=== PATIENT | female | born 1970 | race Caucasian/White ===

== ENCOUNTER 2019-03-22 13:45 | Outpatient (CLI) | payer OTHER ==
--- NOTE | 2019-03-22 14:23 | ULT ---
EXAM: Right lower extremity venous Doppler US HISTORY: Right lower extremity pain FINDINGS: Grayscale, color-flow, Doppler evaluation, spectral analysis of the right lower extremity venous stru ctures is performed with 2-D imaging. The right common femoral, superficial femoral, popliteal, posterior tibial, proximal greater saphenous and profunda femoral veins are imaged. There is normal luminal compressibility, flow, and augmentation the visualized deep venous structures of the right lower extremity. IMPRESSION: No evidence of a deep vein thrombosis in the right lower extremity.
== END 2019-03-22 13:46 | disposition home or self-care (01) ==
LOC: ULT 13:45
PROVIDERS: ATTEND Family Medicine
DX: M79.662 Pain in left lower leg (principal)

== ENCOUNTER 2019-04-05 08:37 | Outpatient (CLI) | payer OTHER ==
--- NOTE | 2019-05-03 16:38 | MMO ---
Bilateral MAMMO Bilat Screen [facility]. CLINICAL HISTORY: Patient is 49 years old and is seen for screening. The patient has no family history of breast cancer. The patient has no personal history of cancer. The patient has a history of bilateral Breast reduction in 2012 - benign. VIEWS: The views performed were: bilateral craniocaudal with tomosynthesis and bilateral mediolateral oblique with tomosynthesis. This study has been interpreted with the assistance of computer-aided detection. MAMMOGRAM FINDINGS: The breasts are heterogeneously dense, which could obscure a lesion on mammography. Finding 1: There is a mass measuring 11 millimeters with circumscribed margins seen in the posterior upper-outer region of the right breast. Finding 2: There is an oval mass measuring 4 x 7 mm with circumscribed margins seen in the MLO view only seen in the right breast. Finding 3: There are stable benign appearing calcifications seen in both breasts. IMPRESSION: FINDING 1: MASS IN THE POSTERIOR UPPER-OUTER REGION OF THE RIGHT BREAST REQUIRES ADDITIONAL EVALUATION. ADDITIONAL PROJECTIONS (RIGHT CRANIOCAUDAL SPOT COMPRESSION; RIGHT MEDIOLATERAL OBLIQUE SPOT COMPRESSION; AND RIGHT MEDIOLATERAL) ARE RECOMMENDED. AN ULTRASOUND EXAM IS RECOMMENDED IF NEEDED. ADDITIONAL IMAGING. FINDING 2: MASS IN THE RIGHT BREAST REQUIRES ADDITIONAL EVALUATION. ADDITIONAL PROJECTIONS (RIGHT MEDIOLATERAL OBLIQUE SPOT COMPRESSION AND RIGHT MEDIOLATERAL) ARE RECOMMENDED. AN ULTRASOUND EXAM IS RECOMMENDED IF NEEDED. ADDITIONAL IMAGING. FINDING 3: STABLE CALCIFICATIONS IN BOTH BREASTS ARE BENIGN. THE RESULTS OF THIS EXAM WERE SENT TO THE PATIENT. ACR BI-RADS Category 0 - Incomplete: Need additional imaging evaluation. [facility] will notify the patient of the need for additional imaging services. MAMMOGRAPHY NOTE: 1. A negative mammogram report should not delay a biopsy if a dominant of clinically suspicious mass is present. 2. Approximately 10% to 15% of breast cancers are not detected by mammography. 3. Adenosis and dense breasts may obscure an underlying neoplasm. Reported by: ADRIANO ESCOTO MD Electonically Signed: [id number]
== END 2019-04-05 08:38 | disposition home or self-care (01) ==
LOC: BICMAMMO 08:37
PROVIDERS: ATTEND Family Medicine
DX: Z12.31 Encounter for screening mammogram for malignant neoplasm of breast (principal); N63.11 Unspecified lump in the right breast, upper outer quadrant; R92.8 Other abnormal and inconclusive findings on diagnostic imaging of breast; Z98.890 Other specified postprocedural states
CPT/HCPCS: 77063; 77067

== ENCOUNTER 2019-05-10 13:11 | Outpatient (CLI) | payer OTHER ==
--- NOTE | 2019-05-10 15:58 | ULT ---
LIMITED RIGHT BREAST ULTRASOUND: 05/10/19 PROVIDED CLINICAL HISTORY: Abnormal mammogram. FINDINGS: Limited sonographic interrogation was performed at the 9 o'clock position of the right breast in the region of mammographic concern. There is a circumscribed, hypoechoic, smoothly marginated, wider rosalind n tall nonshadowing mass at the 9 o'clock position of the right breast, measuring approximately 1.2 c m in greatest dimension. This corresponds with the circumscribed, low density mass seen mammographica lly in this region. At the 8 o'clock position of the right breast is a circumscribed area of diminished echogenicity demo nstrating features typical for an intramammary lymph node and thought to correspond to the additional mammographic abnormality. IMPRESSION: Correlation with the patient's prior mammograms which were not available at the time of the diagnosti c mammogram and ultrasound is recommended as the initial first step to evaluate for stability of thes e masses mammographically. In the absence of comparison examinations, consideration for six month fol low-up ultrasound or ultrasound guided biopsy should be given for the 9 o'clock breast lesion. BIRADS 0: Incomplete: Correlation with prior films is recommended. POS: OFF
--- NOTE | 2019-05-17 13:25 | MMO ---
Right Breast MAMMO Unilat Diag [facility]. CLINICAL HISTORY: Patient is 49 years old and is seen for diagnostic exam. The patient has no family history of breast cancer. The patient has no personal history of cancer. The patient has a history of bilateral Breast reduction in 2012 - benign. VIEWS: The views performed were: right craniocaudal spot compression with tomosynthesis; right mediolateral oblique spot compression with tomosynthesis; and right mediolateral with tomosynthesis. FILMS COMPARED: The present examination has been compared to prior imaging studies performed at [facility] on 04/05/2019 and 05/10/2019. This study has been interpreted with the assistance of computer-aided detection. MAMMOGRAM FINDINGS: The breast is heterogeneously dense, which could obscure a lesion on mammography. Finding 1: There is a low density, oval mass measuring 14 millimeters with circumscribed margins seen in the right breast at 9 o'clock. Ultrasound demonstrates a mass that is not a simple cyst but is not otherwise definitively characterized. Finding 2: There is an equal density, oval mass measuring 8 millimeters with circumscribed margins seen in the right breast at 8 o'clock. This demonstrates features compatible with an intramammary lymph node on ultrasound. IMPRESSION: FINDING 1: MASS IN THE RIGHT BREAST AT 9 O'CLOCK REQUIRES ADDITIONAL EVALUATION. OLD FILMS ARE REQUIRED FOR COMPARISON. A SUPPLEMENTAL REPORT WILL BE GENERATED WHEN THESE ARE OBTAINED. IF THESE ARE NOT RECEIVED, FOLLOW UP OR BIOPSY IS RECOMMENDED. THE RESULTS OF THIS EXAM WERE SENT TO THE PATIENT. ACR BI-RADS Category 0 - Incomplete: Need Prior Mammograms for Comparison MAMMOGRAPHY NOTE: 1. A negative mammogram report should not delay a biopsy if a dominant of clinically suspicious mass is present. 2. Approximately 10% to 15% of breast cancers are not detected by mammography. 3. Adenosis and dense breasts may obscure an underlying neoplasm. Reported by: ANASTACIO MCCLELLAND MD Electonically Signed: [id number]
== END 2019-05-10 13:12 | disposition home or self-care (01) ==
LOC: BICMAMMO 13:11
PROVIDERS: ATTEND Family Medicine
DX: N63.13 Unspecified lump in the right breast, lower outer quadrant (principal)
CPT/HCPCS: G0279

== ENCOUNTER 2020-05-15 11:20 | Outpatient (CLI) | payer OTHER | END 2020-05-15 11:21 | disposition home or self-care (01) | LOC: BICMAMMO 11:20 | PROVIDERS: ATTEND Family Medicine | DX: Z12.31 Encounter for screening mammogram for malignant neoplasm of breast (principal); Z98.890 Other specified postprocedural states | CPT/HCPCS: 77063; 77067 ==

== ENCOUNTER 2022-04-01 09:02 | Outpatient (CLI) | payer OTHER | END 2022-04-01 09:03 | disposition home or self-care (01) | LOC: TBSIIMAG 09:02 | PROVIDERS: ATTEND Orthopaedic Surgery | DX: M23.91 Unspecified internal derangement of right knee (principal); S82.141A Displaced bicondylar fracture of right tibia, initial encounter for closed fracture; M25.061 Hemarthrosis, right knee; S83.271A Complex tear of lateral meniscus, current injury, right knee, initial encounter; M23.8X1 Other internal derangements of right knee ==

== ENCOUNTER 2024-12-31 13:36 | Outpatient (CLI) | payer OTHER | END 2024-12-31 13:37 | disposition home or self-care (01) | LOC: SCSRAD 13:36 | PROVIDERS: ATTEND Student in an Organized Health Care Education/Training Program | DX: M54.2 Cervicalgia (principal); M47.812 Spondylosis without myelopathy or radiculopathy, cervical region | CPT/HCPCS: 72040 ==